=== PATIENT | male | born 1965 | race Two or more races ===

== ENCOUNTER 2020-06-26 17:01 | Emergency (ER) | payer BC, SELFPAY ==
[~2020-06-26] VITALS: Ht 188 cm; Wt 113.4 kg
[2020-06-26 17:05] VITALS: Ht 188 cm; Wt 113.4 kg
[2020-06-26 20:09] VITALS: BP 172/95
== END 2020-06-26 20:09 | disposition home or self-care (01) ==
LOC: ED 17:01
DX: U07.1 COVID-19 (principal); J12.89 Other viral pneumonia; I10 Essential (primary) hypertension; E11.9 Type 2 diabetes mellitus without complications; E78.00 Pure hypercholesterolemia, unspecified
CPT/HCPCS: U0003